=== PATIENT | female | born 1955 | race Caucasian/White ===

== ENCOUNTER 2023-06-12 07:35 | Day surgery (SDC) | payer MEDICARE, OTHER ==
[2023-06-12] MEDS ORDERED: XYLOCAINE-MPF 1% 5ML SDV IJ ONE (07:36)
[2023-06-12] MEDS ORDERED: Decadron 4 MG INJ IV ONE (07:36)
[2023-06-12] MEDS ORDERED: DIPRIVAN 200 MG/20 ML IV ONE (09:04)
[2023-06-12] MEDS ORDERED: Lactated Ringers 1,000 ML IV ONE (10:55)
--- NOTE | 2023-06-12 11:25 | XRAY ---
Indication: Left piriformis injection. Intraoperative fluoroscopy provided for 9 seconds. Single digital spot images submitted for interpretation demonstrates posterior needle tip projecting over left piriformis. Small amount of contrast injected for needle tip placement. Correlate with intraoperative findings/report.
--- NOTE | 2023-06-12 11:28 | XRAY ---
9 seconds of fluoroscopy was used in surgery for a left piriformis injection.
== END 2023-06-12 09:26 | disposition home or self-care (01) ==
LOC: SDC-PAIN 07:35
PROVIDERS: ATTEND Psychiatry & Neurology Pain Medicine
DX: M79.18 Myalgia, other site (principal); E11.9 Type 2 diabetes mellitus without complications; Z79.899 Other long term (current) drug therapy
CPT/HCPCS: 20552; 72170; 77002; 82947; J1100; J2704; Q9966

== ENCOUNTER 2023-07-17 07:28 | Day surgery (SDC) | payer MEDICARE, OTHER ==
[2023-07-17] MEDS ORDERED: Sodium Chloride 0.9(Preservative Free) 10 ML IJ ONE (07:29)
[2023-07-17] MEDS ORDERED: XYLOCAINE-MPF 1% 5ML SDV IJ ONE (07:29)
[2023-07-17] MEDS ORDERED: DIPRIVAN 200 MG/20 ML IV ONE (09:05)
[2023-07-17] MEDS ORDERED: Lactated Ringers 1,000 ML IV ONE (11:17)
--- NOTE | 2023-07-17 12:15 | XRAY ---
Indication: Lumbar RAHEEM. Intraoperative fluoroscopy provided for 21 seconds. 2 digital spot image submitted for interpretation demonstrates posterior needle tip projecting posterior to lumbosacral junction. Small amount of contrast injected for needle tip placement. Correlate with intraoperative findings/report. Incidental incompletely visualized left epidural generator and leads.
--- NOTE | 2023-07-17 12:18 | XRAY ---
Indication: Left piriformis injection. Intraoperative fluoroscopy provided for 15 seconds. Single digital spot image submitted for interpretation demonstrates posterior needle tip projecting over left piriformis. Small amount of contrast injected for needle tip placement. Correlate with intraoperative findings/report.
--- NOTE | 2023-07-17 16:56 | XRAY ---
21 seconds of fluoroscopy was used in surgery for a lumbar RAHEEM.
--- NOTE | 2023-07-17 16:56 | XRAY ---
15 seconds of fluoroscopy was used in surgery for a left piriformis injection.
== END 2023-07-17 09:40 | disposition home or self-care (01) ==
LOC: SDC-PAIN 07:28
PROVIDERS: ATTEND Psychiatry & Neurology Pain Medicine
DX: M54.16 Radiculopathy, lumbar region (principal); M79.18 Myalgia, other site; E11.9 Type 2 diabetes mellitus without complications; Z79.899 Other long term (current) drug therapy
CPT/HCPCS: 20552; 62323; 72100; 72170; 77002; 77003; 82947; J2704; Q9966

== ENCOUNTER 2024-09-02 08:11 | Day surgery (SDC) | payer MEDICARE, OTHER ==
[2024-09-02] MEDS ORDERED: propofoL IV ONE (10:04)
--- NOTE | 2024-09-02 11:21 | XRAY ---
Indication: Bilateral L4-S1 MBB. Intraoperative fluoroscopy provided for 10 seconds. Single digital spot image submitted for interpretation demonstrates posterior needle tips projecting over expected left and right L4-S1 nerve roots. Correlate with intraoperative findings/report.
--- NOTE | 2024-09-02 12:02 | XRAY ---
10 seconds of fluoroscopy was used in surgery for a bilateral L4-S1 MBB.
== END 2024-09-02 10:38 | disposition home or self-care (01) ==
LOC: SDC-PAIN 08:11
PROVIDERS: ATTEND Psychiatry & Neurology Pain Medicine
DX: M47.816 Spondylosis without myelopathy or radiculopathy, lumbar region (principal); E11.9 Type 2 diabetes mellitus without complications
CPT/HCPCS: 72020; 77002; 82947; J2704